=== PATIENT | male | born 1990 | race Caucasian/White ===

== ENCOUNTER 2018-09-21 03:16 | Inpatient (IN) | payer OTHER, MEDICAID ==
[~2018-09-21] VITALS: Ht 185.4 cm; Wt 101.2 kg
[2018-09-21] VITALS (19 sets, daily range): BP systolic 85–150; BP diastolic 42–80
[2018-09-21 04:01] LABS: HEMATOCRIT 43.7 % (42.0-52.0); HEMOGLOBIN 15.3 gm/dL (14.0-18.0); MCH 30.2 pg (26.0-34.0); MCV 86.2 fL (80.0-100.0); MPV 8.9 fl. (7.2-11.1); NUCLEATED RBCS 0 /100WBC; PLATELET COUNT* 194 thou/uL (150-400); RBC 5.08 mil/uL (4.50-6.00); RDW-CV 12.8 % (10.5-14.5); WBC 9.6 thou/uL (4.0-11.0)
[2018-09-21 04:26] LABS: ALBUMIN 4.4 g/dL (3.4-5.0); CREATININE 1.2 mg/dL (0.6-1.3); POTASSIUM 3.7 mmol/L (3.5-5.1); TOTAL BILIRUBIN 0.7 mg/dL (<0.1-1.0); TOTAL PROTEIN 7.9 g/dL (6.4-8.2)
[2018-09-21 04:35] LABS: URINE BILIRUBIN NEGATIVE (Negative); URINE BLOOD NEGATIVE (Negative); URINE CLARITY CLEAR; URINE COLOR YELLOW; URINE GLUCOSE-RANDOM NEGATIVE (Negative); URINE KETONES TRACE (Negative); URINE LEUKOCYTES-REFLEX NEGATIVE (Negative); URINE NITRITE-REFLEX NEGATIVE (Negative); URINE PROTEIN TRACE (Negative); URINE SPECIFIC GRAVITY 1.015 (1.005-1.030); URINE UROBILINOGEN 0.2 E.U./dl (0.2-1.0)
[2018-09-21 04:43] LABS: AMP/METHAMP Negative (Negative); BARBITURATES Negative (Negative); BENZODIAZEPINES POSITIVE (Negative); COCAINE Negative (Negative); METHADONE Negative (Negative); OPIATES Negative (Negative); PCP Negative (Negative); THC Negative (Negative)
--- NOTE | 2018-09-21 06:01 | NUR ---
WHEN TAKING PATIENT TO ICU PATIENT BEGAN HAVING A SEIZURE; LASTING APPROX 30 SECONDS. ER PHYSICIAN IN ROOM WITH PATIENT.
[2018-09-21 06:11] LABS: ABSOLUTE LYMPHOCYTES 0.5 thou/uL (0.8-5.3); ABSOLUTE MONOCYTES 0.2 thou/uL (0.0-1.2); ABSOLUTE NEUTROPHILS 8.9 thou/uL (1.6-8.1)
[2018-09-21 06:15] LABS: PLATELET ESTIMATE ADEQUATE
--- NOTE | 2018-09-21 07:14 | NUR ---
PATIENT TO ICU ROOM 1 AT 0550 ACCOMPANIED BY AND RN. STARTED HAVING SEIZURE-LIKE ACTIVITIES RIGHT WHEN THEY WERE COMING THROUGH THE DOORS, PATIENT WAS ABLE TO NOD HIS HEAD WHEN I ASKED HIM IF HE CAN HEAR ME. ABLE TO ANSWER QUESTIONS RIGHT AFTER. PHYSICIAN AT BEDSIDE, CONSENT SIGNED AND SPINAL TAP PERFORMED. PATIENT TO LAY FLAT ON HIS BACK X4 HOURS. SEIZURE PRECAUTIONS IN PLACE. NEUROLOGY CONSULTED. BELONGINGS WITH . CALL LIGHT WITHIN REACH. REPORT GIVEN TO ESPERANZA AMARO FOR CONTINUED CARE.
[2018-09-21 07:32] LABS: CSF GLUCOSE 66 mg/dl (40-70); CSF PROTEIN 31.2 mg/dl (15-45)
[2018-09-21 07:46] LABS: CSF CLARITY CLEAR; CSF COLOR COLORLESS; VOLUME 9 ml
[2018-09-21 07:57] LABS: CSF RBC 3 /mm3; CSF WBC 0 /mm3 (0-10)
--- NOTE | 2018-09-21 08:55 | NUR ---
PT C/O OF HEAD PAIN. NOT TIME FOR PRN MEDICATIONS. DR TRACY AND RECEIVED PRN ORDERS. TORADOL ADMININSTERED PER EMAR. PT REPORTS FEELING LIKE A SEIZURE IS COMING ON. DR TRACY ASKED TO INCREASE VERSED FREQUENCY. VERSED FREQUENCY INCREASED FROM Q6 TO Q4. TEMP 100.9.
--- NOTE | 2018-09-21 11:57 | EKG ---
[place] [address] ELECTROCARDIOGRAM REPORT Name: MIKE MCCOY Room: [address] ADM IN [facility]#: [id number] Admission: 09/21/18 Attend Phys: Ruchi Tomlinson MD Discharge: Date of : 88 Report #: [id number] THIS REPORT FOR: //name// [facility] ED Test Date: 2018-09-21 Test Time: 03:24:05 Pat Name: MIKE MCCOY Department: Room: [facility] Gender: M [employer]: AP : 1990 Requested By: Hazel Strong Order Number: [id number] MD: Nicholas Song Measurements Intervals [place] Rate: 123 P: 50 ND: 149 QRS: 95 QRSD: 90 T: -4 QT: 312 QTc: 447 Interpretive Statements Sinus tachycardia Borderline right axis deviation Borderline T wave abnormalities No previous ECG available for comparison Electronically Signed On 09-21-2018 11:57:40 CDT by Nicholas Song [email or web address] <ELECTRONICALLY SIGNED> By: Nicholas Song MD, LOCATED WITHIN [facility] 09/21/18 1157 [id number] [id number] Nicholas Song MD, FACC /EPI
[2018-09-21 16:30] LABS: HEMATOCRIT 39.7 % (42.0-52.0); HEMOGLOBIN 13.7 gm/dL (14.0-18.0); MCH 30.2 pg (26.0-34.0); MCHC 34.6 g/dL (28.0-37.0); MCV 87.4 fL (80.0-100.0); MPV 9.6 fl. (7.2-11.1); RBC 4.54 mil/uL (4.50-6.00); RDW-CV 12.7 % (10.5-14.5); WBC 6.6 thou/uL (4.0-11.0)
--- NOTE | 2018-09-21 18:14 | NUR ---
PT HAS BEEN SLEEPY THIS SHIFT. PT ABLE TO FOLLOW COMMANDS. PT DROWSY. AT TIMES PT IS ABLE TO HOLD A CONVERSATION. THIS EVENING PT ABLE TO HOLD A CONVERSATION. PT STATES THAT HE'S SEEING LIGHTS LIKE THE "AURA BORIALIS" AND C/O OF NAUSEA AND C/O OF HEAD IRRITATION BEHIND RIGHT EYE. PT RATES IRRITATION 5/10. THIS AM PT REPORTED IT WAS PAIN BEHIND RIGHT EYE. PAGED AND ASKED FOR ZOFRAN AND EXCEDRIN. AWAITING ORDERS. TMAX THIS SHIFT 101.4. COOL WASH CLOTHS, HYDROCODONE AND TYLENOL USED. PT HAS BEEN AFEBRILE AT TIMES. REFER TO CHARTING.
--- NOTE | 2018-09-21 18:58 | NUR ---
PT FEELING NUMB ON RIGHT SIDE OF FACE. PT FEELS "TINGLY" IN ARMS AND LEGS. [facility] DONE AND SCORE 4. PT REPORTS TALKING SLOWER THAN NORMAL. PT C/O OF PRESSURE BEHIND RIGHT EYE. PT STATES THAT HE WAS DIAGNOSED WITH CLUSTER HEADACHES AFTER HIS DEPLOYMENT AND MIGRAINES. PT STATES HE WAS PUT ON SUMATRIPTAN SPRAYS AND INJECTIONS AND THEY HELPED. PT STATES HE HAS NOT HAD ANYTHING LIKE THIS FOR A LONG TIME. PT STATES HE ALSO HAD TINGLING AND NUMBNESS AND PRESSURE BEHIND RIGHT EYE. PT STATES PRESSURE IS ALWAYS BEHIND RIGHT EYE. DR NOTIFIED OF [facility] AND PAGED TO UPDATE OF SYMPTOMS AND PT HISTORY TO SEE IF WOULD LIKE ADDITIONAL TESTING. HEAD CT THIS AM NEGATIVE. AWAITING DR TO CALL BACK.
[2018-09-22] VITALS (7 sets, daily range): BP systolic 93–127; BP diastolic 47–73
--- NOTE | 2018-09-22 03:00 | NUR ---
PT RESTING QUIETLY WITH EYES CLOSED, EASILY AROUSABLE TO VERBAL STIMULI, AWOKE WHILE THIS [employer] IN ROOM KALYN ORDERED IV FLUIDS, NO URINE OUTPUT THIS SHIFT, ENCOURAGED NEED TO VOID, PT REQUESTING PAIN MEDICATION FOR HEADACHE PRESSURE RIGHT EYE PAIN, 5/10 NUMERICAL PAIN SCALE, FENTANYL 50MCG IVP GIVEN PER ORDER, PT ABLE TO URINATE 250CC DARK [place] URINE FOLLOWING FENTANYL ADMINISTRATION WITH SBA AT BEDSIDE, C/O DIZZYNESS THAT RESOLVED WITH REST. REMAINS A/O X4, BED ALARM ON FOR SAFETY, INSTRUCTED USE CALL LIGHT FOR NEEDS, WANTS, OOB, OR ANY CHANGE IN CONDITION, CALL LIGHT REMAINS IN REACH.
--- NOTE | 2018-09-22 03:42 | NUR ---
PT CONTINUES TO BE AWAKE AND ALERT, STATES FENTANYL NOT HELPFUL FOR PAIN RELEIF, C/O HEAD PRESSURE INCREASING 6/10 NUMERICAL SCALE WITH DIFFICULTY BREATHING, RESP 22, SAO2 99% ON RA, NO CHANGE IN LUNG SOUNDS. LORAZEPAM 1MG IVP GIVEN FOR INCREASED ANXIETY. REQUESTED AND RECEIVED [place] SODA. NO EMESIS THIS SHIFT. WILL CONTINUE TO MONITOR.
--- NOTE | 2018-09-22 07:00 | NUR ---
PT RESTING QUIELTY WITH EYES CLOSED, AROUSABLE TO VERBAL STIMULI MOST OF NOC, REQUESTING PAIN MEDICATION FOR PRESSURE HEADACHE WHEN AWAKE, VERBALIZED "NEEDING SOMETHING STRONGER THEN FENTANYL, TORADOL, OR HYDROCDONE BECAUSE IT HELPS ME SLEEP BUT DOESNT LAST LONG AND I WAKE UP IN PAIN" FEBRILE THIS AM AT 0600 103 ORAL, TORADOL GIVEN FOR FEVER AND PAIN MANAGEMENT, TEMP 100.6 AT 0700, SMALL WATERY BROWN BM, ENCOURAGED PO INTAKE, CONSUMED JELLO THIS AM, REQUESTING CHOLOLATE MILK FOR BREAKFAST, X1 SEIZURE LIKE MOVEMENT DURING NOC, VERBAL DURING INCIDENT REPETIVE "HELP ME, MY HEAD", TORADOL GIVEN WTIH HELPFUL RESULTS. BLOOD CULTURES X2 THIS AM FOR FEVER 103, AWAKE, ALERT, AND CONVERSATIVE AT THIS TIME. EMOTIONAL SUPPORT PROVIDED, CALL LIGHT IN REACH.
[2018-09-22 07:22] LABS: ABSOLUTE LYMPHOCYTES 0.5 thou/uL (0.8-5.3); ABSOLUTE MONOCYTES 0.4 thou/uL (0.0-1.2); ABSOLUTE NEUTROPHILS 2.9 thou/uL (1.6-8.1); BASOPHILS 0.2 %; EOSINOPHILS 0.4 %; HEMATOCRIT 37.5 % (42.0-52.0); HEMOGLOBIN 12.9 gm/dL (14.0-18.0); LYMPHOCYTES 13.6 %; MCH 30.1 pg (26.0-34.0); MCHC 34.4 g/dL (28.0-37.0); MCV 87.4 fL (80.0-100.0); MONOCYTES 10.7 %; MPV 9.2 fl. (7.2-11.1); NUCLEATED RBCS 0 /100WBC; PLATELET COUNT* 147 thou/uL (150-400); POLYS 75.1 %; RBC 4.29 mil/uL (4.50-6.00); RDW-CV 12.9 % (10.5-14.5); WBC 3.9 thou/uL (4.0-11.0)
[2018-09-22 07:38] LABS: ALBUMIN 3.2 g/dL (3.4-5.0); CALCIUM 7.9 mg/dL (8.5-10.1); CREATININE 1.2 mg/dL (0.6-1.3); TOTAL BILIRUBIN 0.4 mg/dL (<0.1-1.0); TOTAL PROTEIN 6.2 g/dL (6.4-8.2)
[2018-09-22 07:44] LABS: POTASSIUM 2.8 mmol/L (3.5-5.1)
--- NOTE | 2018-09-22 12:34 | CON ---
[address] [address] CONSULTATION Name: MIKE MCCOY JR Room: [address] IN .R.#: [id number] Admission: 09/21/18 Attend Phys: Ruchi Tomlinson MD Discharge: Date of : 88 Report #: [id number] THIS REPORT FOR: //name// CC: [facility] physician/PCP Ruchi Tomlinson DATE OF SERVICE: 09/21/2018 HISTORY OF PRESENT ILLNESS: The patient is a 28-year-old male who has apparently had several seizure-like events. His states that at home, he had an event where he seemed to be staring out, tensing up and tapping his chest. He knew something was coming on beforehand. With the second event, this occurred in the ambulance and the third event occurred as he was being wheeled into the Emergency Room. Apparently when EMS pulled into the parking lot, the patient stopped responding to commands and this was felt to be a seizure. Reading through the information from the Emergency Room report, the patient had been complaining of headache. His states that he had a headache over his left eye with the initial event. He has also had a fever and apparently, they were having a normal conversation with the patient, but he then began acting as though he could not speak. After a sternal rub, he woke up and answered questions. Then, he began coughing and had tremor of both arms. When the Emergency Room physician went to talk to him, he immediately stopped and started talking to the Emergency Room physician. PAST MEDICAL HISTORY: Negative. PAST SURGICAL HISTORY: Negative. MEDICATIONS: None. ALLERGIES: MORPHINE. PHYSICAL EXAMINATION: VITAL SIGNS: Temperature is 36.4, pulse rate 98, respiratory rate 19, blood pressure 108/42, bedside pulse oximetry 99% on 2 liters. NEUROLOGIC: The patient is asleep. On inspection, cranial nerves 2-12 appeared grossly intact. He was able to move all 4 extremities. LABORATORY DATA: White blood cell count 9.6, hemoglobin 15.3, hematocrit 43.7, MCV 86.2, platelet count 194,000. Urinalysis unremarkable. Spinal tap, white blood cells 0, red blood cells 3, glucose 66, protein 31. Chemistry: Sodium 139, potassium 3.7, chloride 102, carbon dioxide 27, BUN 13, creatinine 1.2, glucose 111. Liver functions normal. Toxicology positive for benzodiazepines. IMAGING: CT scan [place] [address] CONSULTATION Name: MIKE MCCOY Room: [address]#: [id number] Admission: 09/21/18 Attend Phys: Ruchi Tomlinson MD Discharge: Date of : 88 Report #: [id number] IMPRESSION: These events are nonepileptic. By the 's description of these events and by the information obtained through the Emergency Room report, I do not think this patient has a seizure disorder. The EEG is also completely normal. I would not continue levetiracetam. I asked his if the patient were under stress and she said that she did not think so; however, I will try to speak to the patient once he is awake. I would not give this patient any further sedation. I thank you for your kind referral of this patient. <ELECTRONICALLY SIGNED> By: Yaa Acuña DO 09/22/18 1234 1234 [id number] Acuña DO /nt
--- NOTE | 2018-09-22 12:34 | EEG ---
[address] [address] EEG STUDY REPORT Name: MCCOYMIKE JR Room: [address] IN [facility]#: [id number] Admission: 09/21/18 Attend Phys: Ruchi Tomlnison MD Discharge: Date of : 88 Report #: [id number] THIS REPORT FOR: //name// CC: [facility] physician/PCP Ruchi Tomlinson HISTORY: The patient has had several episodes concerning for possible seizures. An EEG is requested for further evaluation. DESCRIPTION: The awake record consists of symmetric moderate amplitude 11-12 Hz posterior dominant rhythm, which attenuates with eye opening. Stage I sleep was characterized by attenuation of the background record. Photic stimulation was non-activating. No focal abnormalities or epileptiform discharges were noted. IMPRESSION: This is a completely normal adult awake to stage I sleep record. No focal abnormalities or epileptiform discharges were noted. <ELECTRONICALLY SIGNED> By: Yaa Acuña DO 09/22/18 1234 1235 [id number] Acñua DO /nt
--- NOTE | 2018-09-22 13:00 | NUR ---
PATIENT IS ALERT AND ORIENTED X4. COMPLAINING OF HEADACHE, 7/10 MORE ON THE RT.SIDE. SUMATRIPTAN 50MG GIVEN PER PHYSICIAN ORDER. NEUROLOGY CAME IN AND INCREASED THE DOSAGE, SUMATRIPTAN 100MG GIVEN. PAIN DECREASED TO 3/10. PATIENT PLANNED TO BE DISCHARGED ON SUMATRIPTAN. PATIENT FEBRILE CONTINUOUSLY, T MAX 101.8 AT 1300, TYLENOL 650MG ADMINISTERED PER ORDERS. PT HAD DIARRHEA 2 EPISODES. FLUIDS ENCOURAGED. POTASSIUM 2.8 IN THE MORNING, REPLACED PER PROTOCOL.
[2018-09-22] MEDS ORDERED: IMITREX100 MG PO (13:05)
--- NOTE | 2018-09-22 13:35 | NUR ---
NEURO RECOMMENED SUMATRIPTAN 100 MG AT ONSET OF HEADACHE, MAY REPEAT AFTER 2 HOURS. DO NOT EXCEED 2 TABS IN 24 HOURS. SCRIPT CALLED INTO PT'S PREFERRED PHARMACY. [facility] IN [place], [place].
--- NOTE | 2018-09-22 16:00 | NUR ---
RECEIVED DISCHARGE ORDERS. ALL CONSULTS OKAY WITH DISCHARGE. RECEIVED SCRIPT FOR SUMATRIPTAN. MED CALLED INTO PHARMACY. IV'S AND CARDIAC MONITORS DC'D. ALL BELONGINGS PACKED UP AND LEFT WITH PT. PT EDUCATED TO TRY AND DRINK AND EAT IF ABLE.
--- NOTE | 2018-09-22 16:58 | NUR ---
POTASSIUM 2.8. POTASSIUM REPLACED. POTASSIUM CHECKED AND 2.9. DR NOTIFIED. RECEIVED ORDER FOR 40MEQ OF POTASSIUM AND PER PT OKAY TO DISCHARGE.
== END 2018-09-22 16:30 | disposition home or self-care (01) | DRG 103 ==
LOC: M.ERS 03:16 → M.TBA-ER 04:44 → M.ICU 04:44
PROVIDERS: Emergency Medicine; Internal Medicine; ADMIT Internal Medicine
PROC: 009U3ZX Drainage of Spinal Canal, Percutaneous Approach, Diagnostic (ICD-10-PCS; principal; 2018-09-21)
DX: G43.909 Migraine, unspecified, not intractable, without status migrainosus (principal); R65.10 Systemic inflammatory response syndrome (SIRS) of non-infectious origin without acute organ dysfunction; E87.2 Acidosis; F41.9 Anxiety disorder, unspecified; R19.7 Diarrhea, unspecified; J30.2 Other seasonal allergic rhinitis; R56.9 Unspecified convulsions; Z90.49 Acquired absence of other specified parts of digestive tract; Z88.5 Allergy status to narcotic agent